=== PATIENT | female | born 1980 | race Two or more races ===

== ENCOUNTER 2020-10-08 15:17 | Emergency (ER) | payer MEDICAID, OTHER ==
[~2020-10-08] VITALS: Ht 160 cm; Wt 78.0 kg
--- NOTE | 2020-10-08 15:17 | NUR ---
PT BIB SELF C/O BILATERAL LOWER EXTREMITY REDNESS. PT IS AAOX4, NOT IN RESPIRATORY DISTRESS,V/S STABLE, KEPT RESTED AND COMFORTABLE. WILL CONTINUE TO MONITOR.
--- NOTE | 2020-10-08 15:45 | NUR ---
AT BEDSIDE FOR EVAL.
[2020-10-08] MEDS ORDERED: methylPREDNISolone SOD SUCC 125 MG/2ML VIAL ONE (15:49)
[2020-10-08] MEDS ORDERED: diphenhydrAMINE HCL 50 MG CAPSULE ONE (15:50)
[2020-10-08] MEDS: methylPREDNISolone SOD SUCC 125 MG/2ML VIAL IV ONE (15:59)
[2020-10-08] MEDS: diphenhydrAMINE HCL 25 MG CAPSULE PO ONE (15:59)
--- NOTE | 2020-10-08 16:00 | NUR ---
MANAGER MAC AT BEDSIDE FOR US.
[2020-10-08 16:16] LABS: BASOPHILS # (AUTO) 0.1 /CMM (0.0-0.2); BASOPHILS % (AUTO) 0.7 % (0.0-2.0); EOSINOPHILS % (AUTO) 3.3 % (0.0-6.0); HEMATOCRIT 32 % (33-45); HEMOGLOBIN 10.3 g/dL (11.5-14.8); LYMPHOCYTES # (AUTO) 1.9 /CMM (0.8-4.8); LYMPHOCYTES % (AUTO) 24.5 % (20.0-44.0); MEAN CORPUSCULAR HGB CONC 32 g/dl (31.0-36.0); MEAN CORPUSCULAR VOLUME 79 fL (82-100); MONOCYTES # (AUTO) 0.4 /CMM (0.1-1.30); MONOCYTES % (AUTO) 5.7 % (2.0-12.0); NEUTROPHILS # (AUTO) 5.2 /CMM (1.8-8.9); NEUTROPHILS % (AUTO) 65.8 % (43.0-81.0); PLATELET COUNT (AUTO) 379 /CMM (150-450); RED BLOOD CELL COUNT(AUTO) 3.99 MIL/uL (4.0-5.2); WHITE BLOOD COUNT (AUTO) 7.8 K/uL (4.3-11.0)
[2020-10-08 16:29] LABS: CALCIUM, SERUM 8.4 mg/dL (8.5-10.1); CREATININE 0.8 mg/dL (0.6-1.3); POTASSIUM 3.2 mmol/L (3.5-5.1)
[2020-10-08] MEDS ORDERED: EPIN0.3P3 IJ (18:11)
[2020-10-08] MEDS ORDERED: PRED20TA PO (18:11)
--- NOTE | 2020-10-08 18:18 | NUR ---
IV removed. Catheter intact and site benign. Pressure and 4x4 applied to site. No bleeding noted. Patient discharged to home in stable condition. Written and verbal after care instructions given. Patient verbalizes understanding of instruction. Instructed not to drive.
[2020-10-08 18:19] VITALS: BP 116/64
== END 2020-10-08 18:23 | disposition home or self-care (01) ==
LOC: ER 15:21
DX: R21 Rash and other nonspecific skin eruption (principal); K21.9 Gastro-esophageal reflux disease without esophagitis; F17.200 Nicotine dependence, unspecified, uncomplicated; Z98.51 Tubal ligation status; Z98.890 Other specified postprocedural states
CPT/HCPCS: 36415; 80048; 84702; 85025; 93970; 96374; 99284; J2930; Q0163

== ENCOUNTER 2021-01-27 18:37 | Emergency (ER) | payer OTHER ==
[~2021-01-27] VITALS: Ht 165.1 cm; Wt 72.6 kg
[~2021-01-27 18:37] MED LIST: EPIN0.3P3 IJ; PRED20TA PO
[2021-01-27 20:28] VITALS: BP 122/84
[2021-01-27] MEDS ORDERED: CYCL5TAB PO (21:50)
[2021-01-27] MEDS ORDERED: METH4TAB17 PO (21:50)
[2021-01-27] MEDS ORDERED: NAPR-1009 PO (21:50)
== END 2021-01-27 22:30 | disposition home or self-care (01) ==
LOC: ER 18:37
DX: M54.32 Sciatica, left side (principal); R60.0 Localized edema; F17.210 Nicotine dependence, cigarettes, uncomplicated; K21.9 Gastro-esophageal reflux disease without esophagitis; Z98.890 Other specified postprocedural states; Z79.899 Other long term (current) drug therapy
CPT/HCPCS: 73610-TC; 73630-TC; 93971-TC

== ENCOUNTER → 2021-10-11 | Emergency (ER) | payer OTHER ==
[~2021-10-11] VITALS: Ht 160 cm; Wt 90.7 kg
[~2021-10-11] MED LIST changes: +CYCL5TAB PO; +DIPH50CA4 PO; +FAMO20TA80 PO; +FAMOTIDINE/PF INJ 20 MG/2 ML VIAL IV ONE; +METH4TAB17 PO; +NAPR-1009 PO; +PRED50TA PO; +diphenhydrAMINE HCL 50 MG/ML VIAL IV ONE; +diphenhydrAMINE HCL 50 MG/ML VIAL ONE; +methylPREDNISolone SOD SUCC 125 MG/2ML VIAL IV ONE; +methylPREDNISolone SOD SUCC 125 MG/2ML VIAL ONE
--- NOTE | 2021-10-11 01:44 | NUR ---
BIBS C/O ALLERGIC REACTION. +HIVES DENIES SOB. "HAPPEND AFTER SHOWER". PATIENT ALERT AND ORIENTED X3. AMBULATORY WITH NON LABORED BREATHING IN BED 06 AWAITING MD GARCES.
--- NOTE | 2021-10-11 02:25 | NUR ---
IV LINE ESTABLISHED [id number]
--- NOTE | 2021-10-11 05:56 | NUR ---
Awaiting pt to be picked up by friend for DC. Written and verbal after care instructions given. Patient verbalizes understanding of instruction. IV removed. Catheter intact and site benign. Pressure and 4x4 applied to site. No bleeding noted. Awaiting pt to be picked up by friend for DC
[2021-10-11 05:57] VITALS: BP 101/73
== END | disposition home or self-care (01) ==
LOC: ER 01:33
DX: T78.49XA Other allergy, initial encounter (principal); F17.200 Nicotine dependence, unspecified, uncomplicated; Z87.19 Personal history of other diseases of the digestive system; Z98.51 Tubal ligation status; Z87.42 Personal history of other diseases of the female genital tract; Z79.899 Other long term (current) drug therapy; X58.XXXA Exposure to other specified factors, initial encounter
CPT/HCPCS: 96374; 96375; 99284; J1200; J2930; J3490